=== PATIENT | female | born 2000 | race Hispanic/Latino ===

== ENCOUNTER 2020-10-09 14:25 | Outpatient (CLI) | payer BC | END 2020-10-09 14:26 | disposition home or self-care (01) | LOC: BICMRI 14:25 | PROVIDERS: ATTEND Neurological Surgery | DX: M54.12 Radiculopathy, cervical region (principal) | CPT/HCPCS: 72141 ==

== ENCOUNTER 2025-04-16 08:00 | Outpatient (CLI) | payer BC | END 2025-04-16 12:00 | disposition home or self-care (01) | LOC: MRI 08:00 | PROVIDERS: ATTEND Specialist | DX: M51.16 Intervertebral disc disorders with radiculopathy, lumbar region (principal); M51.17 Intervertebral disc disorders with radiculopathy, lumbosacral region; M48.02 Spinal stenosis, cervical region | CPT/HCPCS: 72141; 72148 ==